=== PATIENT | male | born 1995 | race Two or more races ===

== ENCOUNTER 2020-10-16 20:57 | Emergency (ER) | payer SELFPAY ==
--- NOTE | 2020-10-16 21:29 | EDM.PDOC ---
ED HPI GENERAL MEDICAL PROBLEM - General Chief Complaint: General Stated Complaint: POSSIBLE HEAT STROKE Time Seen by Provider: 10/16/20 21:29 - History of Present Illness INITIAL COMMENTS - FREE TEXT/NARRATIVE: 24-year-old male presents the emergency room exhausted. He is working a new job at work about a 14-hour day he has been drinking water but apparently not enough he voided twice early in the morning then once in the afternoon. The patient just feels achy. He has had. The patient states he recently just started this job. Patient denies any recent injuries falls or bumping his head. He feels generally achy all over and weaker than normal. Denies any significant past medical history is not on any routine medications other than his Lexapro. Generalized Pain Score (Numeric/FACES): 5 - Related Data Allergies Allergy/AdvReac Type Severity Reaction Status Date / Time No Known Allergies Allergy Verified 10/16/20 21:24 Home Meds: Home Meds Escitalopram Oxalate [Lexapro] 1 dose PO DAILY 10/16/20 [History] Social & Family History - Tobacco Use Tobacco Use Status *Q: Current Every Day Tobacco User Years of Tobacco use: 4 Packs/Tins Daily: 0 - Caffeine Use Caffeine Use: Reports: Coffee, Energy Drinks, Soda - Recreational Drug Use Recreational Drug Use: No ED ROS GENERAL - Review of Systems Review Of Systems: See Below Constitutional: Reports: Weakness, Fatigue. Denies: Fever, Chills HEENT: Reports: No Symptoms Respiratory: Reports: No Symptoms Cardiovascular: Reports: No Symptoms GI/Abdominal: Reports: No Symptoms : Reports: No Symptoms Musculoskeletal: Reports: Other (Generalized achiness) Skin: Reports: No Symptoms Neurological: Reports: Headache. Denies: No Symptoms Psychiatric: Reports: No Symptoms ED EXAM, GENERAL - Physical Exam Exam: See Below Exam Limited By: No Limitations General Appearance: Alert, No Apparent Distress Eye Exam: Bilateral Eye: EOMI, Normal Inspection, PERRL Ears: Normal External Exam, Normal Canal, Hearing Grossly Normal, Normal TMs Nose: Normal Inspection, Normal Mucosa, No Blood Throat/Mouth: Normal Inspection, Normal Lips, Normal Teeth, Normal Gums, Normal Oropharynx, Normal Voice, No Airway Compromise Head: Atraumatic, Normocephalic Neck: Normal Inspection, Supple, Non-Tender, Full Range of Motion, Tender Lateral (He is got bilateral paraspinous muscle tenderness with palpation mild spasm this does seem to radiate to the top of his head). No: Lymphadenopathy (L), Lymphadenopathy (R), Tender Midline Respiratory/Chest: No Respiratory Distress, Lungs Clear, Normal Breath Sounds Cardiovascular: Regular Rate, Rhythm, No Edema, No Murmur GI/Abdominal: Normal Bowel Sounds, Soft, Non-Tender Rectal (Males) Exam: No: Rectal Fissure Back Exam: Normal Inspection. No: CVA Tenderness (R) Extremities: Normal Inspection, Normal Range of Motion, Non-Tender Neurological: Alert, Oriented, CN II-XII Intact Skin Exam: Warm, Dry, Intact Course - Vital Signs Last Recorded V/S: Last Vital Signs Temp 36.9 C 10/16/20 21: Pulse 100 10/16/20 21:23 Resp 20 10/16/20 21:23 BP 149/96 H 10/16/20 21:23 Pulse Ox 97 10/16/20 21:23 - Re-Assessments/Exams Free Text/Narrative Re-Assessment/Exam: 10/16/20 22:10 Offered IV fluids laboratory evaluation, however the patient would like to hold off this because of financial concerns and starting a new job. I have discussed with him the importance of pushing lots of fluid including Gatorade when he is working. Also it is possible he is coming down with another illness on top of his exertional work which can make him feel this way. Patient voices understanding but would like to go home and get some rest and drink fluid on his own. Departure - Departure Time of Disposition: 22:11 Disposition: Home, Self-Care 01 Clinical Impression: Dehydration - Discharge Information Referrals: PCP,None [Primary Care Provider] - Forms: ED Department Discharge Additional Instructions: Return to the emergency room with any questions problems or worsening symptoms. Avoid energy drinks. Drink lots of fluids including Gatorade while working and see if this helps. Sepsis Event Note (ED) - Evaluation Sepsis Screening Result: No Definite Risk - Focused Exam Vital Signs: Vital Signs Temp Pulse Resp BP Pulse Ox 10/16/20 21:23 36.9 C 100 20 149/96 H 97
== END 2020-10-16 22:17 | disposition home or self-care (01) ==
LOC: JD.ED 20:57
DX: E86.0 Dehydration (principal); Z72.0 Tobacco use
CPT/HCPCS: 99283; 99284